=== PATIENT | male | born 2000 | race Caucasian/White ===

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

== ENCOUNTER → 2020-07-27 | Outpatient (REF) | payer OTHER ==
[~2020-07-27] MED LIST changes: +ADME100I2 SQ; +BASA100I SC
== END ==
LOC: M LAB REF 15:08
PROVIDERS: ATTEND Nurse Practitioner Family
DX: J02.9 Acute pharyngitis, unspecified (principal)

== ENCOUNTER → 2020-08-12 | Outpatient (CLI) | payer SELFPAY | LOC: M LABSMTC 14:17 | PROVIDERS: ATTEND Pediatrics | DX: Z20.828 Contact with and (suspected) exposure to other viral communicable diseases (principal) ==

== ENCOUNTER → 2021-07-08 | Outpatient (REF) | payer OTHER | LOC: M LAB REF 15:42 | PROVIDERS: ATTEND Nurse Practitioner Family | DX: J02.9 Acute pharyngitis, unspecified (principal) ==

== ENCOUNTER 2021-10-31 14:05 | Emergency (ER) | payer OTHER ==
[~2021-10-31] VITALS: Ht 182.9 cm; Wt 55.3 kg
[2021-10-31 18:08] VITALS: BP 115/78
== END 2021-10-31 18:10 | disposition home or self-care (01) ==
LOC: M ED 14:05
DX: R06.02 Shortness of breath (principal); E11.9 Type 2 diabetes mellitus without complications; F17.200 Nicotine dependence, unspecified, uncomplicated; F12.10 Cannabis abuse, uncomplicated; J45.909 Unspecified asthma, uncomplicated; Z79.4 Long term (current) use of insulin; Z91.018 Allergy to other foods

== ENCOUNTER 2022-02-24 16:11 | Emergency (ER) | payer OTHER ==
[~2022-02-24] VITALS: Ht 182.9 cm; Wt 57.3 kg
[2022-02-24 20:08] VITALS: BP 142/74
== END 2022-02-24 21:33 | disposition home or self-care (01) ==
LOC: M ED 16:11
DX: F32.A Depression, unspecified (principal); E10.9 Type 1 diabetes mellitus without complications; E03.9 Hypothyroidism, unspecified; F17.290 Nicotine dependence, other tobacco product, uncomplicated; Z91.018 Allergy to other foods; Z79.4 Long term (current) use of insulin; Z79.890 Hormone replacement therapy

== ENCOUNTER 2022-05-17 09:09 | Emergency (ER) | payer OTHER, MEDICAID ==
[~2022-05-17] VITALS: Ht 182.9 cm; Wt 55.1 kg
[2022-05-17 10:00] LABS: VENOUS BASE EXCESS -4.5 (-2.0-2.0); VENOUS HCO3 21.3 MEQ/L (23.0-27.0); VENOUS O2 SATURATION 75.1 % (60.0-80.0); VENOUS PARTIAL PRESSURE CO2 41.9 mmHg (38.0-50.0); VENOUS PARTIAL PRESSURE O2 39.1 mmHg (30.0-50.0); VENOUS PH 7.324 UNITS (7.330-7.430); VENOUS STANDARD HCO3 20.2 MEQ/L; VENOUS TOTAL CO2 22.6 MEQ/L (24.0-28.0)
[2022-05-17] MEDS ORDERED: NS 1,000 ML IV ONE (10:05)
[2022-05-17 10:07] LABS: BASO # 0.1 10^3/uL (0.0-0.2); BASO % 1.2 % (0.0-1.0); EOS # 0.5 10^3/uL (0.0-0.5); EOS % 7.8 % (0.0-3.0); HEMATOCRIT 44.7 % (42.0-52.0); HEMOGLOBIN 16.6 g/dl (13.5-17.5); LYMPH # 1.7 10^3/uL (1.5-5.0); LYMPH % 25.4 % (24.0-44.0); MEAN CORPUSCULAR HEMOGLOBIN 32.7 pg (27.0-33.0); MEAN CORPUSCULAR VOLUME 88.2 fl (80.0-96.0); MONO # 0.4 10^3/uL (0.0-0.8); MONO % 5.5 % (2.0-8.0); NEUTROPHILS # 4.1 10^3/uL (1.5-8.5); NEUTROPHILS % 59.8 % (36.0-66.0); PLATELET COUNT, AUTOMATED 361 10^3/uL (150-450); RED BLOOD COUNT 5.07 10^6/uL (4.30-6.10); WHITE BLOOD COUNT 6.8 10^3/uL (4.0-10.0)
[2022-05-17 10:14] LABS: MEAN CORPUSCULAR HGB CONC 37.1 g/dl (32.0-36.5)
[2022-05-17 10:46] LABS: BLOOD UREA NITROGEN 17 MG/DL (7-18); CALCIUM LEVEL 9.7 MG/DL (8.5-10.1); CARBON DIOXIDE LEVEL 27 MEQ/L (21-32); CHLORIDE LEVEL 94 MEQ/L (98-107); CREATININE FOR GFR 1.09 MG/DL (0.70-1.30); GLOMERULAR FILTRATION RATE > 60.0 (>60); GLUCOSE, FASTING 624 MG/DL (70-100); POTASSIUM SERUM 4.3 MEQ/L (3.5-5.1); SODIUM LEVEL 128 MEQ/L (136-145)
[2022-05-17 10:47] LABS: ALBUMIN 4.2 GM/DL (3.2-5.2); ALT/SGPT 30 U/L (12-78); BILIRUBIN,DIRECT 0.3 MG/DL (0.0-0.2); LIPASE 395 U/L (73-393); TOTAL PROTEIN 8.2 GM/DL (6.4-8.2)
[2022-05-17] MEDS ORDERED: HumuLIN R (REGULAR) INSULIN (NovoLIN R) **100U/ML** PER UNIT IV ONE (11:00)
[2022-05-17 11:02] LABS: HEMOGLOBIN A1c 11.7 %
[2022-05-17 11:03] LABS: ACETONE/KETONE 6.05 MG/DL (<2.81)
[2022-05-17 11:38] LABS: OSMOLALITY SERUM 308 MOSM/KG (275-295)
[2022-05-17] MEDS ORDERED: BASA100I SC (12:58)
[2022-05-17 13:27] VITALS: BP 115/69
== END 2022-05-17 13:28 | disposition home or self-care (01) ==
LOC: M ED 09:09
DX: E10.65 Type 1 diabetes mellitus with hyperglycemia (principal); Z91.018 Allergy to other foods; Z79.4 Long term (current) use of insulin; Z79.899 Other long term (current) drug therapy; E03.9 Hypothyroidism, unspecified; Z79.890 Hormone replacement therapy
CPT/HCPCS: 80047; 80048; 80076; 82010; 82803; 83036; 83690; 83930; 85025; 93005; 93041; 94760; 96360; 99285; J1815

== ENCOUNTER 2023-04-15 04:58 | Inpatient (IN) | payer MEDICAID, OTHER ==
[~2023-04-15] VITALS: Ht 182.9 cm; Wt 59.1 kg
[2023-04-15] MEDS ORDERED: NS 1,000 ML IV ONE ×2 (05:20→06:25)
[2023-04-15 05:33] LABS: VENOUS BASE EXCESS -14.5 (-2.0-2.0); VENOUS HCO3 13.1 MMOL/L (23.0-27.0); VENOUS O2 SATURATION 81.9 % (60.0-80.0); VENOUS PARTIAL PRESSURE CO2 36.5 mmHg (38.0-50.0); VENOUS PARTIAL PRESSURE O2 51.3 mmHg (30.0-50.0); VENOUS PH 7.172 UNITS (7.330-7.430); VENOUS STANDARD HCO3 13.5 MMOL/L; VENOUS TOTAL CO2 14.2 MMOL/L (24.0-28.0)
[2023-04-15] MEDS ORDERED: METOCLOPRAMIDE INJ 10MG/2ML VIAL IV ONE (05:40)
[2023-04-15 05:44] LABS: BASO # 0.2 10^3/uL (0.0-0.2); BASO % 1.8 % (0.0-1.0); EOS # 0.7 10^3/uL (0.0-0.5); EOS % 5.9 % (0.0-3.0); HEMATOCRIT 46.4 % (42.0-52.0); HEMOGLOBIN 16.5 g/dl (13.5-17.5); LYMPH # 2.8 10^3/uL (1.5-5.0); LYMPH % 22.3 % (24.0-44.0); MEAN CORPUSCULAR HEMOGLOBIN 32.9 pg (27.0-33.0); MEAN CORPUSCULAR HGB CONC 35.6 g/dl (32.0-36.5); MEAN CORPUSCULAR VOLUME 92.6 fl (80.0-96.0); MONO # 0.7 10^3/uL (0.0-0.8); MONO % 5.2 % (2.0-8.0); NEUTROPHILS % 64.4 % (36.0-66.0); PLATELET COUNT, AUTOMATED 399 10^3/uL (150-450); RED BLOOD COUNT 5.01 10^6/uL (4.30-6.10); WHITE BLOOD COUNT 12.4 10^3/uL (4.0-10.0)
[2023-04-15] MEDS ORDERED: LEVOTHYROXINE 75MCG TABLET (0.075MG) PO SCH (06:00)
[2023-04-15 06:22] LABS: LIPASE 20 U/L (12-53)
[2023-04-15 06:30] LABS: ACETONE/KETONE > 4.50 MMOL/L (0.02-0.27); ALBUMIN 5.1 G/DL (3.2-5.2); ALKALINE PHOSPHATASE 101 U/L (46-116); ALT/SGPT 53 U/L (7.0-40); AST/SGOT 54 U/L (<34); BILIRUBIN,DIRECT 0.6 MG/DL (<0.4); BILIRUBIN,TOTAL 1.8 MG/DL (0.3-1.2); BLOOD UREA NITROGEN 26 MG/DL (9-23); CALCIUM LEVEL 10.4 MG/DL (8.5-10.1); CARBON DIOXIDE LEVEL 14 MMOL/L (20-31); CHLORIDE LEVEL 97 MMOL/L (98-107); CREATININE FOR GFR 0.89 MG/DL (0.70-1.30); GLOMERULAR FILTRATION RATE > 60.0 (>60); GLUCOSE, FASTING 558 MG/DL (60-100); POTASSIUM SERUM 4.9 MMOL/L (3.5-5.1); SODIUM LEVEL 133 MMOL/L (136-145); TOTAL PROTEIN 8.6 G/DL (5.7-8.2)
[2023-04-15] MEDS ORDERED: INSULIN IV RATE CHANGE DOCUMENTATION ML/HR XX SCH (06:35)
[2023-04-15] MEDS ORDERED: INSULIN REGULAR IN 0.9 % NACL 100 UNIT in IV 1 EA IV SCH ×4 (06:35→08:10)
[2023-04-15 06:38] LABS: OSMOLALITY SERUM 327 MOSM/KG (275-295)
[2023-04-15] MEDS ORDERED: HumuLIN R (REGULAR) INSULIN (NovoLIN R) **100U/ML** PER UNIT IV ONE (07:00)
[2023-04-15 07:15] LABS: HEMOGLOBIN A1c 8.7 % (4.0-6.0)
[2023-04-15] MEDS ORDERED: INSU100V6 SQ (07:38)
[2023-04-15] MEDS ORDERED: HOME MED LIST COMPLETE! XX SCH (07:40)
[2023-04-15] MEDS ORDERED: LR 1,000 ML IV ONE (08:30)
[2023-04-15] MEDS ORDERED: ENOXAPARIN 40MG/0.4ML SYRINGE (J1650 PER 10MG) SC SCH (09:00)
[2023-04-15] MEDS ORDERED: CHLORHEXIDINE GLUCONATE 0.12 % 15ML UDC (PERIDEX ORAL RINSE) MT SCH (09:00)
[2023-04-15] MEDS ORDERED: PANTOPRAZOLE 40MG VIAL IV SCH (09:00)
[2023-04-15] MEDS: INSULIN IV RATE CHANGE DOCUMENTATION ML/HR XX SCH ×5 (09:19→17:08)
[2023-04-15 09:27] LABS: BLOOD UREA NITROGEN 17 MG/DL (9-23); CALCIUM LEVEL 8.9 MG/DL (8.5-10.1); CARBON DIOXIDE LEVEL 15 MMOL/L (20-31); CHLORIDE LEVEL 107 MMOL/L (98-107); CREATININE FOR GFR 0.88 MG/DL (0.70-1.30); GLOMERULAR FILTRATION RATE > 60.0 (>60); GLUCOSE, FASTING 294 MG/DL (60-100); POTASSIUM SERUM 4.2 MMOL/L (3.5-5.1); SODIUM LEVEL 139 MMOL/L (136-145)
[2023-04-15] MEDS: KCL 20MEQ IN D5/0.45NS 1000ML 1,000 ML IV SCH ×2 (10:59→17:48)
[2023-04-15 11:56] VITALS: BP 102/58; TEMP 98.9; O2SAT 100
[2023-04-15 13:30] LABS: BLOOD UREA NITROGEN 17 MG/DL (9-23); CALCIUM LEVEL 8.7 MG/DL (8.5-10.1); CARBON DIOXIDE LEVEL 23 MMOL/L (20-31); CHLORIDE LEVEL 109 MMOL/L (98-107); CREATININE FOR GFR 0.73 MG/DL (0.70-1.30); GLOMERULAR FILTRATION RATE > 60.0 (>60); GLUCOSE, FASTING 131 MG/DL (60-100); POTASSIUM SERUM 4.1 MMOL/L (3.5-5.1); SODIUM LEVEL 140 MMOL/L (136-145)
[2023-04-15 16:09] VITALS: BP 102/60; TEMP 98.3; O2SAT 100
[2023-04-15 17:50] LABS: BLOOD UREA NITROGEN 14 MG/DL (9-23); CALCIUM LEVEL 8.6 MG/DL (8.5-10.1); CARBON DIOXIDE LEVEL 21 MMOL/L (20-31); CHLORIDE LEVEL 109 MMOL/L (98-107); GLOMERULAR FILTRATION RATE > 60.0 (>60); GLUCOSE, FASTING 133 MG/DL (60-100); POTASSIUM SERUM 4.2 MMOL/L (3.5-5.1); SODIUM LEVEL 142 MMOL/L (136-145)
== END 2023-04-15 18:23 | disposition left against medical advice (07) | DRG 420 ==
LOC: M ED 04:58 → M ED INP 07:31 → ENRESERV 08:29 → M ICU 10:44
PROVIDERS: ADMIT Internal Medicine Pulmonary Disease; ATTEND Internal Medicine Pulmonary Disease
DX: E10.10 Type 1 diabetes mellitus with ketoacidosis without coma (principal); E10.65 Type 1 diabetes mellitus with hyperglycemia; E03.9 Hypothyroidism, unspecified; Z79.890 Hormone replacement therapy; F17.290 Nicotine dependence, other tobacco product, uncomplicated; Z79.4 Long term (current) use of insulin